=== PATIENT | male | born 1955 | race American Indian/Alaskan Native ===

== ENCOUNTER 2019-01-25 08:20 | Day surgery (SDC) | payer OTHER ==
[~2019-01-25 08:20] MED LIST: NACL 0.9% 1000 ML 1,000 ML IV SCH
[2019-01-25] MEDS ORDERED: SUBLIMAZE ONE (08:54)
--- NOTE | 2019-01-25 08:54 | Anesthesia Consultation ---
Anesthesia Consult and Med Hx Date of service: 01/25/19 - Airway Anesthetic Teeth Evaluation: Good ROM Head & Neck: Adequate Mental/Hyoid Distance: Adequate Mallampati Class: Class I Intubation Access Assessment: Good - Pulmonary Exam CTA: Yes - Cardiac Exam Cardiac Exam: RRR - Pre-Operative Health Status ASA Pre-Surgery Classification: ASA2 Proposed Anesthetic Plan: MAC - Gastrointestinal Hx Gastroesophageal Reflux Disease: Yes - Additional Comments Anesthesia Medical History Comments: History of Gout
--- NOTE | 2019-01-25 08:54 | Anesthesia Day of Surgery ---
Anesthesia Day of Surgery - Day of Surgery Patient Examined: Yes Patient H&P Reviewed: Yes Patient is NPO: Yes Beta Blockers: No
[2019-01-25] MEDS ORDERED: DIPRIVAN 10 MG/ML IV ONE ×3 (08:55)
--- NOTE | 2019-01-25 09:55 | Procedure Note ---
Date of procedure: 01/25/19 Pre-op diagnosis: GERD/ ColonPolyp Screening Post-op diagnosis: other (Mild to Moderate,Distal Erosive Esophagitis/ Gastritis/Moderate,Diverticular Disease/ Multiple,Small Recto-Sigmoid Polyps (possibly Hyperplastic)/ Mild to Moderate Internal Hemorrhoid) Procedure: EGD with Biopsy and Colonoscopy with Biopsy Anesthesia: ROQUE Surgeon: YESSI CARLSON Estimated blood loss: minimal Pathology: list Specimen disposition: to lab Condition: stable Disposition: same day (Encourage fiber intake and treat with PPI and avoid aspirin,NSAID and anticoagulants for 4 days; otherwise resume home medication. Follow up in 1 to 2 weeks ([phone]).)
--- NOTE | 2019-01-25 10:02 | Operative Report ---
PROCEDURE: Esophagogastroduodenoscopy with biopsy. INDICATIONS: This is a 63-year-old -[place] gentleman who has been having GERD symptoms. EGD was done to assess for the problem. DESCRIPTION OF PROCEDURE: The procedure was done after getting informed consent with MAC anesthesia. Instrument was passed through the hypopharynx into the esophagus, which showed some [id number] distal erosive esophagitis. Biopsy was done from the distal esophagus. Stomach showed some antral gastritis. Biopsy was done from the gastric body, the gastric antrum and angular incisura to rule out for H. pylori and atrophic gastritis. The pylorus was patent. The duodenum in the first and second portion appeared normal. There was no evidence of any peptic ulcer disease noted. ASSESSMENT: Gastroesophageal reflux disease symptoms, [id number] distal erosive esophagitis and gastritis. PLAN: To treat the patient with PPI, have the patient avoid aspirin and aspirin-related products for the next few days and follow up in the office in 1-2 weeks' time. A colonoscopy will also be done as part of colon polyp screening. Procedure was done with assistance of the GI lab team, which included RN, Shakira Harkins, and Travon franklin, and also with the assistance of anesthesia. Again, the patient will be treated with PPI and asked to follow up in the office in 1-2 weeks' time. [facility]# [id number] ZOË/DIONNE
--- NOTE | 2019-01-25 10:25 | Operative Report ---
PROCEDURE: Colonoscopy with biopsy. INDICATIONS: A 63-year-old -[place] gentleman who had a colonoscopy done as part of colon polyp screening. DESCRIPTION OF PROCEDURE: Procedure was done after getting informed consent with MAC anesthesia. Initial rectal exam was unremarkable. Instrument was passed through the rectum onto the cecum, which was identified with ileocecal valve and appendiceal orifice. The cecum did not show any additional pathology on the retroverted view. The scope was then withdrawn and with the straight view was reintroduced to the cecum and no additional pathology was noted. The cecum, ascending colon, most of the transverse colon showed normal mucosa, the distal transverse colon, the left colon showed moderate diverticular disease and the rectosigmoid area showed multiple small polyps, possibly hyperplastic that were removed by cold biopsy. There was minimal bleeding from the biopsy sites. No complications associated with the procedure. ASSESSMENT: Colon polyp screening, multiple small rectosigmoid polyps, possibly hyperplastic, moderate diverticular disease, mild to moderate internal hemorrhoids were noted on the retroverted view. There was minimal bleeding associated with the polypectomy. No complications associated with the procedure. The patient will be asked to take fiber supplements, avoid aspirin and aspirin-related products for the next few days. Otherwise, resume other home medication. Treat with PPI because of the EGD findings of esophagitis, gastritis and follow up in the office in 1-2 weeks' time. The procedure was done in the GI lab with assistance of the GI lab team, which included EDUAR, Shakira Harkins and Travon franklin and also the assistance of anesthesia. [facility]# [id number] ZOË/DIONNE
[2019-01-25 11:10] VITALS: BP 115/89
== END 2019-01-25 08:21 | disposition home or self-care (01) ==
LOC: GIO 08:20
DX: Z12.11 Encounter for screening for malignant neoplasm of colon (principal); K29.70 Gastritis, unspecified, without bleeding; K62.1 Rectal polyp; K63.5 Polyp of colon; K21.0 Gastro-esophageal reflux disease with esophagitis; K57.30 Diverticulosis of large intestine without perforation or abscess without bleeding; K64.8 Other hemorrhoids; Z79.899 Other long term (current) drug therapy
CPT/HCPCS: 43239; 45380; 88305; 88342; J2704; J3010; J7030